=== PATIENT | female | born 1985 | race Caucasian/White ===

== ENCOUNTER 2018-04-11 00:35 | Emergency (ER) | payer SELFPAY ==
[~2018-04-11] VITALS: Ht 172.7 cm; Wt 109.1 kg
[2018-04-11 00:38] VITALS: Ht 172.7 cm; Wt 109.1 kg
[2018-04-11] MEDS ORDERED: FORTAMET500 MG/BOT PO (00:43)
[2018-04-11] MEDS ORDERED: ALDACTONE25 MG PO (00:44)
[2018-04-11] MEDS ORDERED: EFFEXOR XR75 MG PO (00:45)
[2018-04-11] MEDS ORDERED: LINZESS145 MCG PO (00:45)
[2018-04-11] MEDS ORDERED: ADDERALL 20 MG20 M1 PO (00:46)
[2018-04-11] MEDS ORDERED: AMBIEN10 MG PO (00:46)
[2018-04-11] MEDS ORDERED: HYDROCODON-ACE1 EAC7 PO (02:31)
[2018-04-11 02:44] VITALS: BP 147/94
== END 2018-04-11 02:45 | disposition home or self-care (01) ==
LOC: D.ER 00:35
DX: S06.0X9A Concussion with loss of consciousness of unspecified duration, initial encounter (principal); Y04.2XXA Assault by strike against or bumped into by another person, initial encounter; Y93.89 Activity, other specified; Y92.019 Unspecified place in single-family (private) house as the place of occurrence of the external cause; S50.12XA Contusion of left forearm, initial encounter; S00.83XA Contusion of other part of head, initial encounter; S01.01XA Laceration without foreign body of scalp, initial encounter; F17.200 Nicotine dependence, unspecified, uncomplicated